=== PATIENT | male | born 1990 ===

== ENCOUNTER 2018-06-18 22:19 | Emergency (ER) | payer SELFPAY ==
[2018-06-18 22:41] VITALS: BP 108/74; PULSE 78; RESP 18; TEMP 98.3; O2SAT 96
== END 2018-06-19 00:35 | disposition home or self-care (01) ==
LOC: C.ER 22:19 → SUPCPDRO 22:19 → C.ER 06-19 00:35
DX: M54.89 Other dorsalgia (principal); V89.2XXA Person injured in unspecified motor-vehicle accident, traffic, initial encounter
CPT/HCPCS: 96372; 99283; J1885